=== PATIENT | female | born 1980 | race Caucasian/White ===

== ENCOUNTER 2016-09-20 11:44 | Emergency (ER) | payer OTHER, MEDICARE ==
[~2016-09-20] VITALS: Ht 167.6 cm; Wt 72.6 kg
[~2016-09-20 11:44] MED LIST: DOXY100T10 PO; HYDR-971 PO; METH0.2T36 PO; NAPR375T3 PO; OMEP20TA8 PO; ONDA4TAB10 SL; PROC10TA57 PO; PROM25TA10 PO; RANI150T6 PO
[2016-09-20 12:42] LABS: BASO % 0 % (0-3); CALCIUM 9.4 mg/dL (8.5-10.1); CREATININE 0.9 mg/dL (0.6-1.0); EOS % 0 % (0-3); GFR 71.3; HEMATOCRIT 38.9 % (36.0-47.0); HEMOGLOBIN 13.3 g/dL (12.0-15.5); LYMPH # 0.9 x10^3/uL (1.0-4.8); LYMPH % 10 % (24-48); MEAN CORPUSCULAR HEMOGLOBIN 30 pg (25-35); MEAN CORPUSCULAR HGB CONC 34 g/dL (31-37); MEAN CORPUSCULAR VOLUME 87 fL (79-100); MONO % 3 % (0-9); NEUT % 87 % (31-73); PLATELET COUNT 258 x10^3/uL (140-400); POTASSIUM 3.8 mmol/L (3.5-5.1); RED BLOOD COUNT 4.49 x10^6/uL (3.50-5.40); RED CELL DISTRIBUTION WIDTH 14.2 % (11.5-14.5); WHITE BLOOD COUNT 9.3 x10^3/uL (4.0-11.0)
[2016-09-20] MEDS ORDERED: IV NORMAL SALINE 1000ML BAG 1,000 ML IV ONE (12:45)
[2016-09-20] MEDS ORDERED: ONDANSETRON PF 4 MG/2 ML VIAL. IV ONE (12:45)
[2016-09-20 12:48] LABS: ALBUMIN 4.4 g/dL (3.4-5.0); ALBUMIN/GLOBULIN RATIO 1.2 (1.0-1.7); TOTAL BILIRUBIN 0.4 mg/dL (0.2-1.0); TOTAL PROTEIN 8.2 g/dL (6.4-8.2)
[2016-09-20] MEDS: HYDROmorphone 2 MG/ML VIAL IV PRN ×2 (12:53→13:36)
[2016-09-20 12:57] LABS: BILIRUBIN,URINE NEGATIVE (NEG); GLUCOSE,URINE NEGATIVE (NEG); NITRITE,URINE POSITIVE (NEG); PH,URINE 6.5; PROTEIN,URINE 30 mg/dL (NEG-TRACE); UROBILINOGEN,URINE 0.2 mg/dL (0.2 mg/dL)
[2016-09-20 13:22] LABS: BACTERIA,URINE MODERATE /HPF (0-FEW); RBC,URINE 0 /HPF (0-2); SQUAMOUS EPITHELIAL CELL,UR MOD /LPF; WBC,URINE OCC /HPF (0-4)
--- NOTE | 2016-09-20 14:07 | PHYS DOC ---
Past Medical History Past Medical History: Anxiety, Depression, Other Additional Past Medical Histor: ADHD, MOOD DISORDER Past Surgical History: Other Additional Past Surgical Histo: BREAST REDUCTION, D&C Alcohol Use: None Drug Use: Marijuana Adult General Chief Complaint Chief Complaint: ABDOMINAL PAIN HPI HPI 35-year-old female presenting to the emergency department today with right upper quadrant abdominal pain for the last 10 days. Pain is sharp moderate intermittent and without alleviating factors. She currently scheduled for a cholecystectomy within the next week or 2. She denies any fevers at home or jaundice nose. ROS negative for chest pain shortness of breath fevers chills. Positive for nausea vomiting. All other review of systems is negative unless otherwise noted in history of present illness. ED course: 35-year-old female presenting with abdominal pain. Vital signs afebrile with a normal heart rate. Pertinent physical exam findings show mild tenderness in the epigastrium without rebound tenderness or guarding. Equivocal Michaud sign. Negative McBurney's point. Labs obtained along with the ultrasound of the right upper quadrant. Labs and ultrasound unremarkable for acute pathology. On reexamination the patient's abdomen is now soft and nontender. No evidence of cholecystitis on ultrasound. The patient was then discharged home in stable condition to follow up with their primary care physician over the next 2-3 days. They were to return if their symptoms worsened or if they were concerned for any reason. [id number] discharge instructions and return precautions were given. Patient's questions were answered to their satisfaction. Patient is comfortable plan. Review of Systems Review of Systems SEE ABOVE. Current Medications Current Medications Current Medications Medications (Trade) Dose Ordered Sig/[facility] Start Time Stop Time Status Last Admin Dose Admin Hydromorphone HCl (Dilaudid) 0.5 mg PRN Q30MIN PRN 09/20/16 12:45 09/20/16 13:36 0.5 MG Metoclopramide HCl (Reglan) 10 mg 1X ONCE 09/20/16 15:30 09/20/16 15:31 DC 09/20/16 15:36 10 MG Ondansetron HCl (Zofran) 4 mg 1X ONCE 09/20/16 12:45 09/20/16 12:46 DC 09/20/16 12:51 4 MG Sodium Chloride 1,000 ml @ 1,000 mls/hr 1X ONCE 09/20/16 12:45 09/20/16 13:44 DC 09/20/16 12:51 1,000 MLS/HR Allergies Allergies Allergies Coded Allergies Type Severity Reaction Last Updated Verified No Known Drug Allergies 05/09/16 No Physical Exam Physical Exam SEE ABOVE Constitutional: Well developed, well nourished, no acute distress, non-toxic appearance. [] HENT: Normocephalic, atraumatic, bilateral external ears normal, oropharynx moist, no oral exudates, nose normal. Eyes: PERRLA, EOMI, conjunctiva normal, no discharge. [] Neck: Normal range of motion, no tenderness, supple, no stridor. Cardiovascular:Heart rate regular rhythm, no murmur [] Lungs & Thorax: Bilateral breath sounds clear to auscultation [] Abdomen: SEE ABOVE Skin: Warm, dry, no erythema, no rash. [] Back: No tenderness, no CVA tenderness. [] Extremities: No tenderness, no cyanosis, no clubbing, ROM intact, no edema. Neurologic: Alert and oriented X 3, normal motor function, normal sensory function, no focal deficits noted. [] Psychologic: Affect normal, judgement normal, mood normal. Current Patient Data Vital Signs Vital Signs Date Time Temp Pulse Resp B/P (MAP) Pulse Ox O2 Delivery O2 Flow Rate FiO2 09/20/16 13:36 Room Air 09/20/16 13:33 55 99/63 (75) 98 09/20/16 12:00 98.2 16 98.2 Lab Values Laboratory Tests Test 09/20/16 11:11 09/20/16 11:55 09/20/16 12:00 09/20/16 12:50 POC Urine HCG, Qualitative Hcg negative (Negative) Urine Collection Type Void Urine Color Sharmila Urine Clarity Cloudy Urine pH 6.5 Urine Specific [place] >=1.030 Urine Protein 30 mg/dL (NEG-TRACE) Urine Glucose (UA) Negative mg/dL (NEG) Urine Ketones (Stick) Trace mg/dL (NEG) Urine Blood Moderate (NEG) Urine Nitrite Positive (NEG) Urine Bilirubin Negative (NEG) Urine Urobilinogen Dipstick 0.2 mg/dL (0.2 mg/dL) Urine Leukocyte Esterase Small (NEG) Urine RBC 0 /HPF (0-2) Urine WBC Occ /HPF (0-4) Urine Squamous Epithelial Cells Mod /LPF Urine Bacteria Moderate /HPF (0-FEW) Urine Mucus Mod /LPF White Blood Count 9.3 x10^3/uL (4.0-11.0) Red Blood Count 4.49 x10^6/uL (3.50-5.40) Hemoglobin 13.3 g/dL (12.0-15.5) Hematocrit 38.9 % (36.0-47.0) Mean Corpuscular Volume 87 fL (79-100) Mean Corpuscular Hemoglobin 30 pg (25-35) Mean Corpuscular Hemoglobin Concent 34 g/dL (31-37) Red Cell Distribution Width 14.2 % (11.5-14.5) Platelet Count 258 x10^3/uL (140-400) Neutrophils (%) (Auto) 87 % (31-73) H Lymphocytes (%) (Auto) 10 % (24-48) L Monocytes (%) (Auto) 3 % (0-9) Eosinophils (%) (Auto) 0 % (0-3) Basophils (%) (Auto) 0 % (0-3) Neutrophils # (Auto) 8.1 x10^3uL (1.8-7.7) H Lymphocytes # (Auto) 0.9 x10^3/uL (1.0-4.8) L Monocytes # (Auto) 0.2 x10^3/uL (0.0-1.1) Eosinophils # (Auto) 0.0 x10^3/uL (0.0-0.7) Basophils # (Auto) 0.0 x10^3/uL (0.0-0.2) Segmented Neutrophils % 87 % (35-66) H Lymphocytes % 12 % (24-48) L Monocytes % 1 % (0-10) Platelet Estimate Adequate (ADEQUATE) Sodium Level 145 mmol/L (136-145) Potassium Level 3.8 mmol/L (3.5-5.1) Chloride Level 105 mmol/L (98-107) Carbon Dioxide Level 27 mmol/L (21-32) Anion Gap 13 (6-14) Blood Urea Nitrogen 9 mg/dL (7-20) Creatinine 0.9 mg/dL (0.6-1.0) Estimated GFR (Cockcroft-Gault) 71.3 BUN/Creatinine Ratio 10 (6-20) Glucose Level 127 mg/dL (70-99) H Calcium Level 9.4 mg/dL (8.5-10.1) Total Bilirubin 0.4 mg/dL (0.2-1.0) Aspartate Amino Transferase (AST) 12 U/L (15-37) L Alanine Aminotransferase (ALT) 19 U/L (14-59) Alkaline Phosphatase 54 U/L (46-116) Total Protein 8.2 g/dL (6.4-8.2) Albumin 4.4 g/dL (3.4-5.0) Albumin/Globulin Ratio 1.2 (1.0-1.7) Lipase 92 U/L (73-393) Lactic Acid Level 1.3 mmol/L (0.4-2.0) Laboratory Tests 09/20/16 12:00 Laboratory Tests 09/20/16 12:00 EKG EKG [] Radiology/Procedures Radiology/Procedures [] Course & Med Decision Making Course & Med Decision Making Pertinent Labs and Imaging studies reviewed. (See chart for details) [] Dragon Disclaimer Dragon Disclaimer This electronic medical record was generated, in whole or in part, using a voice recognition dictation system. Departure Departure Impression: Primary Impression: Abdominal pain Disposition: HOME, SELF-CARE Condition: STABLE Referrals: GUERLINE HOLDEN MD (PCP) Patient Instructions: Abdominal Pain, Pain Medicine Instructions Additional Instructions: Thank you for allowing us to participate in your care today. Followup with your primary care physician in 3 days if your symptoms do not improve. Call your Primary Doctor tomorrow and inform them of your visit today. If you do not have a primary care provider you can ask for a list of our primary care providers. Return to the emergency department you have any new or concerning findings. This should be evaluated by the primary care physician and any necessary consulting services for continued management within a few days after discharge. Return to emergency room if you have any new or concerning symptoms including but not limited to fever, chills, nausea, vomiting, intractable pain, any new rashes, chest pain, shortness of air, uncontrolled bleeding, difficulty breathing, and/or vision loss. You may have been prescribed medication that can change in your level of thinking and ability to operate machinery. These medications include hydrocodone and Ativan. Also, Benadryl has been known to do this as well. Be sure to check with your pharmacist and ask if the medications you've prescribed can affect your level of consciousness. I recommend not operating heavy machinery or driving while on medication such as these. Scripts Ondansetron (ZOFRAN ODT) 4 Mg Tab.rapdis 1 TAB SL PRN Q8HRS Y for NAUSEA, #6 TAB Prov: LAKE AVERY MD 09/20/16 Hydrocodone Bit/Acetaminophen (HYDROCODONE-APAP 5-325 ) 1 Each Tablet 1 TAB PO PRN Q6HRS Y for PAIN, #15 TAB 0 Refills Be careful as this medication may cause you to be drowsy or tired. Do not drive on this medication. Prov: LAKE AVERY MD 09/20/16 LAKE AVERY MD Sep 20, 2016 14:07
[2016-09-20 14:31] LABS: PLT ESTIMATE ADEQUATE (ADEQUATE)
[2016-09-20] MEDS ORDERED: METOCLOPRAMIDE HCL 10 MG/2 ML VIAL. IV ONE (15:30)
--- NOTE | 2016-09-20 15:44 | RAD ---
Indication nonfunctioning gallbladder. Right upper quadrant pain. Nausea and vomiting. Note is made of a CT examination of the abdomen and pelvis 09/06/2016 and a complete abdominal ultrasound examination 09/02/2016. Grayscale images were obtained. The examination was targeted to the right upper quadrant. The visualized pancreas appears normal. The visualized liver appears normal. There is a nonshadowing echogenic 3 mm structure adjacent to the gallbladder wall most compatible with a polyp. No cholelithiasis or wall thickening is seen. The right kidney appears unremarkable. The common bile duct diameter of approximately 2 mm is normal. IMPRESSION: No acute or significant finding seen in the right upper quadrant. A small gallbladder polyp is noted.
[2016-09-20 16:03] VITALS: BP 112/69
[2016-09-20] MEDS ORDERED: ONDA4TAB10 SL (16:15)
[2016-09-20] MEDS ORDERED: HYDR-2758 PO (16:15)
[2016-09-24] MEDS ORDERED: DEXT30CA6 PO (16:59)
[2016-09-24] MEDS ORDERED: ONDA4TAB7 PO (16:59)
[2016-09-24] MEDS ORDERED: QUET300T6 PO (16:59)
[2016-09-24] MEDS ORDERED: HYDR-971 PO (16:59)
[2016-09-24] MEDS ORDERED: ALPR0.5T PO (16:59)
== END 2016-09-20 16:40 | disposition home or self-care (01) ==
LOC: MERGE 11:44 → ER 11:44
DX: R10.11 Right upper quadrant pain (principal); R10.816 Epigastric abdominal tenderness; F41.9 Anxiety disorder, unspecified; F32.9 Major depressive disorder, single episode, unspecified; F90.9 Attention-deficit hyperactivity disorder, unspecified type; F12.10 Cannabis abuse, uncomplicated; Z90.49 Acquired absence of other specified parts of digestive tract
CPT/HCPCS: 36415; 76705; 80053; 81001; 81025; 83605; 83690; 85007; 85025; 87086; 96361; 96374; 96375; 96376; 99285; J1170; J2405; J2765; J7030; 87186

== ENCOUNTER 2016-09-26 08:14 | Day surgery (SDC) | payer OTHER, MEDICARE ==
[~2016-09-26] VITALS: Ht 168.9 cm; Wt 69.0 kg
[~2016-09-26 08:14] MED LIST changes: +ALPR0.5T PO; +DEXT30CA6 PO; +HYDR-2758 PO; +IV RINGERS,LACTATED 1000ML 1,000 ML IV SCH; +LIDOCAINE 1% 1 ML SYRINGE. ID PRN; +ONDA4TAB7 PO; +ONDANSETRON PF 4 MG/2 ML VIAL. IV PRN; +PROCHLORPERAZINE 10 MG/2 ML VIAL. IV PRN; +QUET300T6 PO; +fentaNYL PF VIAL 100 MCG/2 ML VIAL IV PRN
[2016-09-26] MEDS ORDERED: PROPOFOL 100 ML IV ONE (08:21)
[2016-09-26] MEDS ORDERED: SUCCINYLCHOLINE 200 MG/10 ML VIAL. ONE (08:21)
[2016-09-26] MEDS ORDERED: fentaNYL PF VIAL 100 MCG/2 ML VIAL ONE ×3 (08:21→10:25)
[2016-09-26] MEDS ORDERED: LIDOCAINE 2% PF Vial for OR 5 ML VIAL. ONE (08:21)
[2016-09-26 08:38] LABS: NEG OBC UR NEG; POS OBC UR POS
[2016-09-26] MEDS ORDERED: INDOCYANINE GREEN 2.5 MG in TOTAL VOLUME SYRINGE 1 ML IVP ONE (08:45)
[2016-09-26] MEDS ORDERED: BUPIVAC MPF-EPI 0.5%-1:200000 10 ML VIAL. ONE (08:58)
[2016-09-26] MEDS ORDERED: DEXAMETHASONE SOD PHOS 20 MG/5 ML VIAL. ONE (09:34)
[2016-09-26] MEDS ORDERED: DESFLURANE 31 TO 60 MINUTES IH ONE (09:34)
[2016-09-26] MEDS ORDERED: GLYCOPYRROLATE 1 MG/5 ML VIAL. ONE (09:42)
[2016-09-26] MEDS ORDERED: ONDANSETRON PF 4 MG/2 ML VIAL. ONE (09:42)
--- NOTE | 2016-09-26 10:36 | PDOC4 ---
Operative Note Operative Note Date: 09/26/2016 Preoperative diagnosis: Chronic cholecystitis Postoperative diagnosis: Same Procedure: Robotic-assisted single site laparoscopic cholecystectomy Surgeon: Soto Specimen: Gallbladder Dictation: Patient is 35-year-old female with complaints of right upper quadrant abdominal pain and an ultrasound showing gallstones within the gallbladder. The procedure of robotic-assisted single site laparoscopic cholecystectomy was explained to the patient in detail all risks benefits were also discussed including bleeding infection injury to intra-abdominal contents possibly necessitating further or an open operation. Patient seemed understanding gave both verbal and written consent to have procedure performed. Patient was taken to the operating room placed in the supine position general anesthesia was initiated once patient was asleep and intubated her abdomen was prepped and draped in the usual sterile fashion. Area at the umbilicus was injected with half percent Marcaine with epinephrine and an incision was made through her umbilicus using 11 blade scalpel this was carried down through the subcutaneous tissue using electrocautery to provide hemostasis down to the fascia. Fascia was then opened with electrocautery and the single site GelPort was placed and a pneumoperitoneum was achieved. At this point the da Loretta ports were placed and docked to the da Loretta robot. Urgent went to the robotic console using grasper and hook electrocautery the triangle was dissected of its adherent tissues exposing the cystic duct and cystic artery. Both the artery and duct were clipped with hemo-lock clips and transected with Endo Solomon scissors. The gallbladder was taken off the liver with hook electrocautery once this was complete surgeon returned to the surgical field undocked the da Loretta robot and removed the single GelPort along with the gallbladder. The fascia was then closed with a running looped 0 PDS suture and the skin was reapproximated with 4 septic Monocryl Mastisol Steri-Strips 4 x 4's and OpSite were applied as a dressing. Patient was awakened and extubated in the operating room taken to recovery in stable condition all sponge instrument needle counts listed as correct. Estimate blood loss 10 mL SEFERINO SOTO MD Sep 26, 2016 10:36
[2016-09-26] MEDS ORDERED: MORPHINE SULFATE 4 MG/ML DISP.SYRIN. ONE (10:38)
[2016-09-26] MEDS ORDERED: PROCHLORPERAZINE 10 MG/2 ML VIAL. ONE (10:40)
--- NOTE | 2016-09-26 10:40 | DISCH ---
DISCHARGE INSTRUCTIONS Condition on Discharge Condition on Discharge: Stable Activity After Discharge Activity Instructions for Disc: Avoid exertion Other activity instructions: No lifting>20lbs for 2 weeks Diet after Discharge Diet after Discharge: Low Fat Wound Incision Care Other wound/incision instructi: May shower in 24 hours Contacting the after DC Call your doctor for: If your condition worsens Follow-Up Follow up with: Dr Soto in 2 weeks SEFERINO SOTO MD Sep 26, 2016 10:40
[2016-09-26] MEDS ORDERED: HYDROmorphone 2 MG/ML VIAL ONE ×2 (10:45→11:23)
[2016-09-26] MEDS: fentaNYL PF VIAL 100 MCG/2 ML VIAL IV PRN ×2 (10:54→11:08)
[2016-09-26] MEDS: HYDROmorphone 2 MG/ML VIAL IV PRN ×4 (10:55→11:30)
[2016-09-26] MEDS: MORPHINE SULFATE 2 MG/ML DISP.SYRIN. IV PRN ×4 (10:55→11:30)
[2016-09-26] MEDS ORDERED: OXYC-323 PO (11:12)
[2016-09-26] MEDS ORDERED: oxyCODONE/APAP 5/325 1 TAB TABLET ONE (11:43)
[2016-09-26] MEDS ORDERED: oxyCODONE/APAP 5/325 1 TAB TABLET PO ONE (11:45)
[2016-09-26 12:45] VITALS: BP 107/68
--- NOTE | 2016-09-27 14:54 | PATHOLOGY ---
PATHOLOGY REPORT * * * * * * * * FINAL DIAGNOSIS: Gallbladder, laparoscopic cholecystectomy: - Chronic cholecystitis. COMMENT: There are no calculi identified within the gallbladder lumen or specimen container. There is no evidence of malignancy. (JPM:db; 09/27/2016) REPORT ELECTRONICALLY SIGNED BY: Ramakrishna Bryan M.D. DATE/TIME: 09/27/2016 14:53 * * * * * * * * GROSS PATHOLOGY: Received in formalin labeled "Jodee Stark, gallbladder and contents," is a 7.3 x 3.5 x 1.8 cm, intact gallbladder with pink shelby serosal surfaces. Opening the gallbladder reveals senior brown, velvety mucosa and an average wall thickness of 0.3 cm. Calculi are not present and no masses are noted grossly. [employer] sections from the body and fundus are submitted along with the proximal margin in cassette A1. (JPM; 09/26/16) INITIAL CPT CODE(S): A; 74319 Professional services performed [place] [address] Technical services performed by [email or web address] at [address] [place] [address], [facility] [address] [place] [address]. SPECIMEN(S) RECEIVED: A.Gallbladder and contents CLINICAL HISTORY: Cholecystitis PATIENT: JODEE STARK /AGE: 910/13/1980 (Age: 35) PATIENT #: [id number] ALT CASE #: SPECIMEN COLLECTION DATE: 09/26/2016 SPECIMEN RECEIVED DATE: 09/26/2016 [facility] - [address] [place] [address] - PHONE: [phone] * * * END OF REPORT * * *
== END 2016-09-26 12:51 | disposition home or self-care (01) ==
LOC: SURG 08:14
PROVIDERS: ATTEND Surgery
DX: K81.1 Chronic cholecystitis (principal); F41.9 Anxiety disorder, unspecified; Z86.69 Personal history of other diseases of the nervous system and sense organs; Z87.440 Personal history of urinary (tract) infections; Z87.39 Personal history of other diseases of the musculoskeletal system and connective tissue; Z91.040 Latex allergy status
CPT/HCPCS: 47562; 81025; J0330; J0690; J0780; J1100; J1170; J2270; J2405; J2704; J3010; J3490; J2001

== ENCOUNTER → 2017-12-30 | Day surgery (SDC) | payer OTHER, MEDICARE ==
[~2017-12-30] VITALS: Ht 167.6 cm; Wt 85.7 kg
[~2017-12-30] MED LIST changes: +ASCO500C9 PO; +BUPIVAC MPF-EPI 0.5%-1:200000 30 ML VIAL. ONE; +CHOL2000 PO; +DEXAMETHASONE SOD PHOS 20 MG/5 ML VIAL. ONE; +FAMOTIDINE 20 MG/2 ML VIAL ONE; +GLYCOPYRROLATE 1 MG/5 ML VIAL. ONE; +HYDR-3164 PO; -HYDR-971 PO; +HYDROmorphone 2 MG/ML VIAL IV PRN; +KETOROLAC 30 MG/ML INJ FOR OR. INJ ONE; -LIDOCAINE 1% 1 ML SYRINGE. ID PRN; +LIDOCAINE 1% PF 2 ML VIAL. ID PRN; +METOCLOPRAMIDE HCL 10 MG/2 ML VIAL. ONE; +MIDAZOLAM HCL/PF 2 MG/2 ML VIAL. ONE; +NAPR-695 PO; -NAPR375T3 PO; +NEOSTIGMINE METHYLSULFATE 5 MG/5 ML SYRINGE. ONE; +ONDANSETRON PF 4 MG/2 ML VIAL. ONE; +OXYC-323 PO; +PREN1TAB58 PO; +PROPOFOL 20 ML IV ONE; +RANI150T21 PO; -RANI150T6 PO; +ROCURONIUM 50 MG/5 ML VIAL. ONE; +SCOPOLAMINE 1.5MG PATCH. TD ONE; +SERT50TA PO; +SEVOFLURANE 61 TO 120 MINUTES. IH ONE; +SUCCINYLCHOLINE 200 MG/10 ML VIAL. ONE; +VITA1CAP PO; +fentaNYL PF VIAL 100 MCG/2 ML VIAL ONE; +oxyCODONE/APAP 5/325 1 TAB TABLET PO ONE
[2017-12-30 13:18] LABS: U PREG PATIENT NEGATIVE (NEG)
--- NOTE | 2017-12-30 13:41 | PDOC4 ---
Operative Note Operative Note Date: 12/30/2017 Preoperative diagnosis: Ventral hernia Postoperative diagnosis: Ventral hernia 2 Procedure: Robotic-assisted laparoscopic ventral hernia repair with mesh Surgeon: Soto Specimen: None Dictation: Patient is a 37-year-old female is fairly large abdominal hernia procedure of robotic-assisted laparoscopic ventral hernia repair with mesh is explained to the patient detail was benefits were also discussed including bleeding infection injury to intra-abdominal contents possibly necessitating further or open operations. The patient seemed understanding gave both verbal and written consent to have the procedure performed. Patient was taken to the operating room placed in supine position general anesthesia was initiated once patient was asleep and intubated her abdomen was prepped and draped in usual sterile fashion using ChloraPrep and area in the left upper quadrant was injected with quarter percent Marcaine with epinephrine using a 5 mm Visiport was placed under direct visualization into the abdomen and a pneumoperitoneum was created once this complete a 5 mm camera was placed within the abdomen which was inspected was noted she had a 2 ventral hernias side by side with a band of fascia between. At this time a 8 mm da Loretta port was placed in the left lower quadrant a second 8 mm da Loretta port was placed in the left mid abdomen and a third in the left upper abdomen all under direct visualization the da Loretta robot was brought in and docked all port sites the surgeon went to the robotic console using grasper and Endo Solomon scissors the hernia sac was dissected off of the fascial margins. Fascia was then brought together with 20 nonabsorbable V lock suture. The fascial closure was then covered with Bard ventral light ST mesh 14 x 9 cm this was then it fixated to the abdominal wall with a running 20 absorbable V lock suture. Once this was complete the pneumoperitoneum was reduced all ports removed the port sites were all closed with 4-0 subcuticular Monocryl suture Mastisol Steri-Strips and island dressings were applied. The patient was waken next made in the operating room taken recovery in stable condition all sponge instrument needle counts listed as correct estimated blood loss 10 mL SEFERINO SOTO MD Dec 30, 2017 13:41
--- NOTE | 2017-12-30 13:42 | DISCH ---
DISCHARGE INSTRUCTIONS Condition on Discharge Condition on Discharge: Stable Activity After Discharge Activity Instructions for Disc: Avoid exertion Other activity instructions: no lifting greater than 20 pounds for 4 weeks Diet after Discharge Diet after Discharge: Regular Wound Incision Care Other wound/incision instructi: óscar shower 24 hours Contacting the DRMadelyn after DC Call your doctor for: If your condition worsens Follow-Up Follow up with: Soto in 2 weeks SEFERINO SOTO MD Dec 30, 2017 13:42
[2017-12-30] MEDS: fentaNYL PF VIAL 100 MCG/2 ML VIAL IV PRN ×2 (14:12→14:30)
[2017-12-30] MEDS: MORPHINE SULFATE 2 MG/ML VIAL. IV PRN ×2 (14:45→15:05)
[2017-12-30 15:45] VITALS: BP 104/57
== END | disposition home or self-care (01) ==
LOC: SURG 10:40
PROVIDERS: ATTEND Surgery
DX: K43.9 Ventral hernia without obstruction or gangrene (principal); F41.9 Anxiety disorder, unspecified; F32.9 Major depressive disorder, single episode, unspecified; Z91.040 Latex allergy status; F98.8 Other specified behavioral and emotional disorders with onset usually occurring in childhood and adolescence; Z90.49 Acquired absence of other specified parts of digestive tract; Z98.890 Other specified postprocedural states; Z80.0 Family history of malignant neoplasm of digestive organs; Z79.899 Other long term (current) drug therapy
CPT/HCPCS: 49652; 81025; A7015; C1781; J0330; J0690; J0780; J1100; J1885; J2270; J2405; J2704; J2710; J2765; J3010; J3490; S2900; J2250